=== PATIENT | female | born 1950 | race Caucasian/White ===

== ENCOUNTER 2021-09-13 07:05 | Emergency (ER) | payer MEDICARE, SELFPAY ==
--- NOTE | ~2021-09-13 | XR_ITS ---
EXAMINATION: XR chest 1V portable EXAM DATE: 09/13/2021 09:48 INDICATION: Cough and shortness of breath. Symptoms 3 weeks. TECHNIQUE: Portable AP frontal chest x-ray was obtained. There is no prior study for comparison. FINDINGS: The lungs are clear. There are no pleural effusions. The cardiomediastinal silhouette is within normal limits. There is no pneumothorax suspected. There are mild bony degenerative changes. 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 Azygos fissure. IMPRESSION: No acute cardiopulmonary findings. Reviewed, dictated and finalized at location B. Y ANALYST
[2021-09-13 07:39] VITALS: BP 118/75; PULSE 95; RESP 18; TEMP 36.6; O2SAT 95
--- NOTE | 2021-09-13 09:17 | ECG_ITS ---
Measurements Intervals [place] Rate: 91 P: 73 TX: 139 QRS: 51 QRSD: 98 T: 13 QT: 358 QTc: 442 Interpretive Statements SINUS RHYTHM POSSIBLE LEFT ATRIAL ENLARGEMENT BORDERLINE ST-T WAVE ABNORMALITY- INFERIOR LEADS BASELINE ARTIFACT- I, II, III, AVR, AVL, AVF, V1-V6 BORDERLINE ECG Electronically Signed On 09-13-2021 10:13:28 DYNAMOM[employer] MECH[employer]IC by Dallas Mathews D.O.
[2021-09-13 09:40] VITALS: BP 115/73; PULSE 100; RESP 16; O2SAT 96
--- NOTE | 2021-09-13 09:41 | PC.NURSE ---
pt refusing all lab draws. Just wants a chest xray
--- NOTE | 2021-09-13 09:44 | PCRCNOTE ---
Pt refused abg, cursed me out
[2021-09-13 10:33] LABS: Basophils Absolute Auto 0.1 K/mm3 (0.0-0.1); Basophils Percent Auto 0.4 % (0.2-1.2); Eosinophils Percent Auto 0.3 % (0-4.4); Hematocrit 27.2 % (37.0-47.0); Hemoglobin 8.3 g/dL (12.0-15.0); Immature Granulocyte Absolute 0.04 K/mm3 (0.00-0.031); Immature Granulocyte Percent A 0.3 % (0-0.5); Lymphocytes Absolute Auto 1.16 K/mm3 (0.9-3.2); Lymphocytes Percent Auto 9.7 % (18.3-44.2); Mean Corpuscular HGB Conc 30.5 g/dl (32-36); Mean Corpuscular Hemoglobin 23.5 pg (26-34); Mean Corpuscular Volume 77.1 fl (80-100); Mean Platelet Volume 10.3 fl (7.4-10.4); Monocytes Absolute Auto 0.7 K/mm3 (0.1-0.6); Monocytes Percent Auto 5.9 % (2.6-8.5); Neutrophils Percent Auto 83.4 % (45.5-73.1); Platelet Count Result 278 k/mm3 (150-375); Red Blood Count 3.53 M/mm3 (4.2-5.4); Red Cell Distribution Width 14.8 % (11.5-14.5)
[2021-09-13 10:46] LABS: INR 1.1; Prothrombin Time 14.4 Seconds (11.1-14.7)
[2021-09-13 10:47] LABS: Partial Thromboplastin Time 29.6 SECONDS (22.3-36.8)
[2021-09-13 10:55] LABS: Troponin I < 0.012 ng/mL (0.000-0.034)
[2021-09-13 10:56] VITALS: BP 124/85; PULSE 83; RESP 18; O2SAT 95
[2021-09-13 10:59] LABS: Alanine Aminotransferase 19 U/L (4-35); Alkaline Phosphatase 100 U/L (38-126); Anion Gap 6 mmol/L (8-16); Aspartate Amino Transferase 25 U/L (14-36); Bilirubin,Total 0.2 mg/dL (0.2-1.3); Blood Urea Nitrogen 15 mg/dL (7-17); CRP 13.6 mg/dL (<1.0); Calcium 8.9 mg/dL (8.4-10.2); Carbon Dioxide 30 mmol/L (22-30); Chloride 100 mmol/L (98-107); Estimated CRCL calculation 89 ml/min; Estimated Glomerular Filt Rate > 60; Glucose 170 mg/dL (65-110); Potassium 3.4 mmol/L (3.4-5.0); Sodium 136 mmol/L (137-145)
--- NOTE | 2021-09-13 11:44 | ED.GENADULT ---
HPI - General Adult General Chief complaint: Shortness of Breath/Dyspnea Stated complaint: sob Time Seen by Provider: 09/13/21 09:05 Source: patient, EMS and RN notes reviewed Mode of arrival: EMS Limitations: no limitations History of Present Illness HPI narrative: Patient brought to the emergency room by ambulance because of productive cough of yellow sputum over the last 3 weeks. Patient is not vaccinated for COVID-19. Patient denies any chest pain, nausea, vomiting, fever, chills, back pain. Shortness of breath with exertion. Patient is homeless. Related Data Allergies Allergy/AdvReac Type Severity Reaction Status Date / Time No Known Allergies Allergy Unverified 01/27/15 12:57 Review of Systems Review of Systems: CONSTITUTIONAL: Denies fever, chills, or sweats. EYES: Denies visual changes, redness, or discharge. ENT: Denies rhinorrhea, congestion, sore throat, or otalgia. CARDIOVASCULAR: Denies chest pain, palpitations, or edema. RESPIRATORY: Denies cough or dyspnea. GASTROINTESTINAL: Denies abdominal pain, nausea, vomiting, or diarrhea. GENITOURINARY: Denies dysuria or hematuria. SKIN: Denies rash or itching. MUSCULOSKELETAL: Denies back pain, joint pain, or myalgia. NEUROLOGIC: Denies headache, numbness, or weakness. PSYCHIATRIC: Denies anxiety or depression. Exam Narrative: General appearance: Well-developed, well-nourished Skin: Normal color Head: Normocephalic, nontraumatic Eyes: Clear conjunctiva ENT: Oropharynx normal, ears normal, nose normal Neck: Supple, nontender Chest and respiratory: Airway patent, no respiratory distress, no accessory muscle use Heart: Regular rate/rhythm Abdomen: Soft, nontender, no organomegaly, quiet bowel sounds Vascular: Normal peripheral pulses, normal capillary refill. Musculoskeletal: Normal range of motion, nontender back Neurologic: Alert and oriented ?3, COMIC ARTIST is normal as tested, no gross motor deficit Course Course Emergency Course: Stable Vital Signs Vital signs: Vital Signs Temperature 36.6 C 09/13/21 07:39 Pulse Rate 95 09/13/21 07:39 Respiratory Rate 18 09/13/21 07:39 Blood Pressure 118/75 09/13/21 07:39 Pulse Oximetry 95 09/13/21 07:39 Temperature 36.6 C 09/13/21 07:39 Pulse Rate 83 12/03/21 10:56 Respiratory Rate 18 09/13/21 10:56 Blood Pressure 124/85 09/13/21 10:56 Pulse Oximetry 95 09/13/21 10:56 Medical Decision Making MDM Narrative Medical decision making narrative: Patient presents with cough for the last 3 weeks. Not vaccinated for Covid. Differential Diagnosis Differential Diagnosis: Acute bronchitis, pneumonia Vital Signs Vital Signs: Vital Signs Temperature 36.6 C 09/13/21 07:39 Pulse Rate 95 09/13/21 07:39 Respiratory Rate 18 09/13/21 07:39 Blood Pressure 118/75 09/13/21 07:39 Pulse Oximetry 95 09/13/21 07:39 Temperature 36.6 C 09/13/21 07:39 Pulse Rate 83 09/13/21 10:56 Respiratory Rate 18 09/13/21 10:56 Blood Pressure 124/85 09/13/21 10:56 Pulse Oximetry 95 09/13/21 10:56 Lab Data Result diagrams: 09/13/21 10:21 09/13/21 10:21 Labs: Lab Results 09/13/21 09/13/21 09/13/21 Range/Units 10:21 10:21 10:21 WBC 12.0 H (4.5-10.0) K/mm3 RBC 3.53 L (4.2-5.4) M/mm3 Hgb 8.3 L (12.0-15.0) g/dL Hct 27.2 L (37.0-47.0) % MCV 77.1 L (80-100) fl MCH 23.5 L (26-34) pg MCHC 30.5 L (32-36) g/dl RDW 14.8 H (11.5-14.5) % Plt Count 278 (150-375) k/mm3 MPV 10.3 (7.4-10.4) fl Immature Gran % (Auto) 0.3 (0-0.5) % Neut % (Auto) 83.4 H (45.5-73.1) % Lymph % (Auto) 9.7 L (18.3-44.2) % Roberts % (Auto) 5.9
[2021-09-13 12:05] VITALS: BP 168/72; PULSE 78; RESP 18; O2SAT 99
== END 2021-09-13 12:07 | disposition home or self-care (01) ==
PROVIDERS: Emergency Provider Emergency Medicine
DX: J20.9 Acute bronchitis, unspecified (principal); Z59.00 Homelessness unspecified
CPT/HCPCS: 36415; 71045; 80053; 84484; 85025; 85610; 85730; 86140; 87040; 93005; 99284